=== PATIENT | female | born 1955 | race American Indian/Alaskan Native ===

== ENCOUNTER 2017-12-13 09:37 | Emergency (ER) | payer BC ==
[2017-12-13 09:38] VITALS: BMI 20.7
[2017-12-13 09:45] VITALS: TEMP 98
[2017-12-13] MEDS ORDERED: Sodium Chloride 0.9% 1,000 ML IV STA (10:09)
[2017-12-13] MEDS ORDERED: Magnesium Sulfate 1 gm in D5W 1 GM/100 ML BAG IVPB ONE (10:09)
--- NOTE | 2017-12-13 10:21 | ED PDOC ---
Arrival/HPI - General Chief Complaint: Headache Time Seen by Provider: 12/13/17 09:59 Historian: Patient, Family (son at bedside) - History of Present Illness Narrative History of Present Illness (Text): 12/13/17 10:15 pt p/w + 5 days onset of frontal headache, severe, right >> left, with light sensitivity, sound sensitivity; pt states headache recently is rated 10/10; pt states it started as the day went along last ; pt denied fall/trauma, pt states she has been feeling very nauseous from the headache and vomited intermittently daily; pt states OTC motrin/aleve dulls the pain but the pain quickly resumes; pt states no fever/chills/sweats, no cp/sob/palpitations, no abd pain, no numbness/tingling, no focal weakness, no slurr speech/vision changes/neck pain, no urinary/bowel changes, no incontinence, no other complaints pt is here for further eval. pt denied prior headaches PCP: DR Rice pt is right hand dominate family hx: unremarkable, no family hx of headaches Time/Duration: < week (5 days) Symptom Onset: Sudden Symptom Course: Unchanged Quality: Tightness, Stabbing Severity Level: 10, Severe Activities at Onset: Rest Context: Home Past Medical History - Provider Review Nursing Documentation Reviewed: Yes - Travel History Have you recently traveled outside [place] w/in the past 3 mons?: No - Past History Past History: No Previous - Infectious Disease Hx of Infectious Diseases: None - Reproductive Menopause: Yes Currently : No - Cardiac Hx Cardiac Disorders: No - Pulmonary Hx Respiratory Disorders: No - Neurological Hx Neurological Disorder: No - HEENT Hx HEENT Disorder: No - Renal Hx Renal Disorder: No - Endocrine/Metabolic Hx Endocrine Disorders: No - Hematological/Oncological Hx Blood Disorders: No - Integumentary Hx Dermatological Disorder: No - Musculoskeletal/Rheumatological Hx Musculoskeletal Disorders: No - Gastrointestinal Hx Gastrointestinal Disorders: Yes - Genitourinary/Gynecological Hx Genitourinary Disorders: No - Psychiatric Hx Psychophysiologic Disorder: No Hx Substance Use: No - Surgical History Hx Hysterectomy: Yes (partial) - Anesthesia Hx Anesthesia: Yes Hx Anesthesia Reactions: No Hx Malignant Hyperthermia: No - Suicidal Assessment Feels Threatened In Home Enviroment: No Family/Social History - Physician Review Nursing Documentation Reviewed: Yes Family/Social History: No Known Family HX Smoking Status: Former Smoker Hx Alcohol Use: Yes Frequency of alcohol use: Socially Hx Substance Use: No Hx Substance Use Treatment: No Allergies/Home Meds Allergies/Adverse Reactions: Allergies No Known Allergies Allergy (Verified 12/13/17 09:39) Home Medications: Home Meds Medication Instructions Recorded Confirmed Ranitidine HCl [Zantac] 150 mg PO BID 12/13/17 12/13/17 Review of Systems - Review of Systems Constitutional: Normal Eyes: Normal. absent: Vision Changes, Photophobia ENT: Normal Respiratory: Normal. absent: SOB Cardiovascular: Normal. absent: Chest Pain Gastrointestinal: Nausea, Vomiting. absent: Abdominal Pain Genitourinary Female: Normal Musculoskeletal: Normal Skin: Normal. absent: Rash Neurological: Headache, Dizziness Endocrine: Normal Hemo/Lymphatic: Normal Psychiatric: Normal Physical Exam - Physical Exam Narrative Physical Exam (Text): 12/13/17 10:10 General: alert/awake, GCS = 15, oriented x 3, resting in bed, uncomfortable, cooperative, interactive; mild distress due to pain Head: NC/AT EYE: PERRLA, EOMI, sclera anicteric, no nystagmus, no photophobia but mildly sensitive to light; visual field intact b/l; fundoscopic exam: no acute papilledema noted b/l Facial: WNL Oral: uvula/tongue are midline, no exudate/lesions, no drooling/stridor, no dysphonia; intact dentitions; mild dry oral mucosa NECK: intact ROM, no midline tenderness, no nuchal rigidity, no meningeal signs ; no step off Chest: CTA b/l, no w/r/r; no tachypenia, no accessory muscle use noted Chest Wall: no crepitus, no lesions, no gross deformities, no focal tenderness Cardiac: +S1, +S2, no m/r/r, no tachycardia Abdominal: +BS, soft/nd/nt, well nourished patient; no masses/rebound/guarding/ rigidity; no dash's sign, no mcburney's point tenderness Extremities: intact ROM, strength 5/5 grossly intact in all limbs, neurovasc intact b/l; + ambulatory; reflex +2/2 BACK: no step off, no midline tenderness, NO crepitus, no gross deformities noted; Intact ROM SKIN: cap refill < 1 sec, no ulcerations, no petechiae, no rashes; no gross pallor NEURO: CNII-XII WNL, no facial asymmetries, no slurr speech, oriented x 3 NIH stroke scale ~ 0 Psych: normal insight, normal affect; follows command with ease Vital Signs Reviewed: Yes Vital Signs Temp Pulse Resp BP Pulse Ox 12/13/17 12:56 64 18 118/71 100 12/13/17 11:23 66 18 123/79 99 12/13/17 09:40 98.0 F 68 16 120/81 98 Temperature: Afebrile Blood Pressure: Normal Pulse: Regular Respiratory Rate: Normal Appearance: Positive for: Well-Appearing, Non-Toxic, Uncomfortable. No: Ill- Appearing, Unkept Pain Distress: Mild Mental Status: Positive for: Alert and Oriented X 3 Finger Stick Blood Glucose: 99 - Systems Exam Head: Present: Atraumatic, Normocephalic Medical Decision Making ED Course and Treatment: 12/13/17 10:15 Impression: right sided diffuse headache i have consider all the differential diagnosis regarding pt's chief medical complaints/clinical findings, including but are not limited to: headache, atrumatic A/P: right sided diffuse headache - labs - ct - ua - supportive care - observe/reevaluation 12/13/17 11:25 pt currently still has 10/10 headache pt is awaiting for her results and symptoms improvement 12/13/17 13:00 pt is feeling improved pt states her headache is easing, 6-7/10 pt is more comfortable pt is made aware of her medical results pt is encouraged fluids pt is encouraged smoking cessation pt will f/u as directed pt will be discharged home Re-evaluation Time: 11:25 Reassessment Condition: Unchanged - Lab Interpretations Lab Results: 12/13/17 10:10 12/13/17 11:46 Lab Results 12/13/17 11:46: Sodium 142, Potassium , Chloride 106, Carbon Dioxide 21, Anion Gap 21 H, BUN 16, Creatinine 0.7, Est GFR ( Amer) > 60, Est GFR (Non-Af Amer) > 60, Random Glucose 112 H, Calcium 9.7, Total Bilirubin 1.5 H, AST 73 H, ALT < 6 L, Alkaline Phosphatase 92, Total Protein 9.5 H, Albumin 4.9 H, Globulin 4.6, Albumin/Globulin Ratio 1.1, Lipase 199 12/13/17 10:20: Urine Color Yellow, Urine Appearance Clear, Urine pH 6.0, Ur Specific [place] 1.025, Urine Protein 30 H, Urine Glucose (UA) Negative, Urine Ketones Negative, Urine Blood Negative, Urine Nitrate Negative, Urine Bilirubin Negative, Urine Urobilinogen 0.2, Ur Leukocyte Esterase Small H, Urine RBC 0 - 2 , Urine WBC 5 - 10, Ur Epithelial Cells 6 - 8, Amorphous Sediment Few, Urine Bacteria Many, Fine Granular Casts 0 - 2, Urine Other Uyeast 12/13/17 10:10: WBC 7.1, RBC 4.36, Hgb 13.2, Hct 40.2, MCV 92.2, MCH 30.3, MCHC 32.8, RDW 13.7, Plt Count 382, MPV 9.1, Gran % 55.8, Lymph % (Auto) 33.6, Wilcox % (Auto) 8.8 H, Eos % (Auto) 1.4 L, Baso % (Auto) 0.4, Gran # 3.93, Lymph # ( Auto) 2.4, Wilcox # (Auto) 0.6, Eos # (Auto) 0.1, Baso # (Auto) 0.03, ESR 40 H I have reviewed the lab results: Yes Interpretation: Abnormal lab values (+ ABNL UA) - RAD Interpretation Narrative RAD Interpretations (Text): 12/13/17 11:20 CT Head: Creator : Rashard Hernandez MD FINDINGS: HEMORRHAGE: No intracranial hemorrhage. BRAIN: No mass effect or edema. No atrophy or chronic microvascular ischemic changes. VENTRICLES: Unremarkable. No hydrocephalus. CALVARIUM: Unremarkable. PARANASAL SINUSES: Unremarkable as visualized. No significant inflammatory changes. MASTOID AIR CELLS: Unremarkable as visualized. No inflammatory changes. OTHER FINDINGS: None. IMPRESSION: No acute findings Radiology Orders: 12/13/17 10:08 HEAD W/O CONTRAST [CT] Stat Experience Specialist: Radiologist - Medication Orders Current Medication Orders: Discontinued Medications Magnesium Sulfate/Dextrose (Magnesium Sulfate 1 Gm/100 Ml D5w) 1 gm in 100 mls @ 100 mls/hr IVPB ONCE ONE Stop: 12/13/17 11:08 Last Admin: 12/13/17 10:30 Dose: 100 mls/hr eMAR Start Stop Document 12/13/17 10:30 SF (Rec: 12/13/17 10:30 [email or web address] Intravenous Solution Start Date 12/13/17 Start Time 10:30 End Date 12/13/17 End time 11:30 Total Infusion Time 60 Sodium Chloride (Sodium Chloride 0.9%) 1,000 mls @ 999 mls/hr IV .Q1H1M STA Stop: 12/13/17 11:09 Last Admin: 12/13/17 10:09 Dose: 999 mls/hr eMAR Start Stop Document 12/13/17 10:09 SF (Rec: 12/13/17 10:31 SF [email or web address]) Intravenous Solution Start Date 12/13/17 Start Time 10:09 End Date 12/13/17 End time 11:10 Total Infusion Time 61 Ketorolac Tromethamine (Toradol) 30 mg IVP STAT STA Stop: 12/13/17 10:10 Last Admin: 12/13/17 10:30 Dose: 30 mg MAR Pain Assessment Document 12/13/17 10:30 SF (Rec: 12/13/17 10:31 SF [email or web address] Pain Reassessment Is this a pain reassessment? Yes Sleep Is patient sleeping during reassessment? No Presence of Pain Presence of Pain Yes IVP Administration Document 12/13/17 10:30 SF (Rec: 12/13/17 10:31 [email or web address] Charges for Administration # of IVP Administrations 1 Metoclopramide HCl (Reglan) 10 mg IVP STAT STA Stop: 12/13/17 10:10 Last Admin: 12/13/17 10:30 Dose: 10 mg IVP Administration Document 12/13/17 10:30 SF (Rec: 12/13/17 10:30 SF [email or web address] Charges for Administration # of IVP Administrations 1 Sumatriptan Succinate (Imitrex Inj) 6 mg SC STAT STA Stop: 12/13/17 11:34 Last Admin: 12/13/17 11:57 Dose: 6 mg Subcutaneous Administrations Document 12/13/17 11:57 SF (Rec: 12/13/17 11:57 SF [email or web address] Injection Site MAR Injection Site Left Deltoid Charges for Administration # of Subcutaneous Administrations 1 Disposition/Present on Arrival - Present on Arrival Any Indicators Present on Arrival: No History of DVT/PE: No History of Uncontrolled Diabetes: No Urinary Catheter: No History of Decub. Ulcer: No History Surgical Site Infection Following: None - Disposition Have Diagnosis and Disposition been Completed?: Yes Diagnosis: Headache, Dehydration, UTI (urinary tract infection) Disposition: HOME/ ROUTINE Disposition Time: 13:15 Patient Plan: Discharge Condition: STABLE Discharge Instructions (ExitCare): Headache, Adult, Dehydration, Adult (DC), Urinary Tract Infections in Adults Print Language: CYMRO Additional Instructions: Make sure to see your doctor in 1-2 days DRINK PLENTY OF FLUIDS take your medications as prescribed RETURN TO ED IF worse pain, cant breath, persistent vomiting, high fever >101- 102 for hours, altered behavior, slurr speech, facial changes, focal weakness ( arm/leg or both), unable to urinate, heavy/persistent bleeding, passing out, chest pain, or other medical emergencies Prescriptions: Ibuprofen [Motrin] 600 mg PO TID PRN #30 tab PRN Reason: Pain, Mild (1-3) Metoclopramide [Reglan] 10 mg PO TID PRN #30 tab PRN Reason: Nausea/Vomiting Nitrofurantoin Macrocrystals [Macrobid] 100 mg PO BID #14 cap Referrals: Lion Rice MD [Primary Care Provider] - Follow up with primary Edgar Garcia MD [Staff Provider] - Follow up with primary Forms: Equivalent DATA (Georgian), WORK NOTE
[2017-12-13 10:24] LABS: BASO # 0.03 K/mm3 (0.0-2.0); BASO % 0.4 % (0.0-3.0); EOS # 0.1 (0.0-0.7); EOS % 1.4 % (1.5-5.0); GRAN # 3.93 (1.4-6.5); GRAN % 55.8 % (50.0-68.0); HEMOGLOBIN 13.2 g/dL (12.0-16.0); LYMPH # 2.4 (1.2-3.4); LYMPH % 33.6 % (22.0-35.0); MEAN CELL VOLUME 92.2 fl (80.0-105.0); MEAN CORPUSCULAR HEMOGLOBIN 30.3 pg (25.0-35.0); MEAN CORPUSCULAR HGB CONC 32.8 g/dl (31.0-37.0); MEAN PLATELET VOLUME 9.1 fl (7.0-11.0); MONO # 0.6 (0.1-0.6); MONO % 8.8 % (1.0-6.0); RBC 4.36 10^6/uL (3.5-6.1); RED CELL DISTRIBUTION WIDTH 13.7 % (11.5-14.5); WHITE BLOOD COUNT 7.1 10^3/ul (4.5-11.0)
[2017-12-13 10:29] LABS: URINE APPEARANCE CLEAR (CLEAR); URINE BILIRUBIN NEGATIVE (NEGATIVE); URINE BLOOD NEGATIVE (NEGATIVE); URINE COLOR YELLOW (YELLOW); URINE GLUCOSE (UA) NEGATIVE (NEGATIVE); URINE LEUKOCYTE ESTERASE SMALL Leu/uL (NEGATIVE); URINE PROTEIN 30 mg/dL (<30 mg/dL); URINE UROBILINOGEN 0.2 E.U./dL (<1 E.U./dL)
[2017-12-13 11:04] LABS: URINE BACTERIA MANY (NEG); URINE RBC 0 - 2 /hpf (0-2)
[2017-12-13 11:05] LABS: URINE FINE GRANULAR CAST 0 - 2 /hpf (0-2)
[2017-12-13 11:06] LABS: URINE AMORPHOUS SEDIMENT FEW
--- NOTE | 2017-12-13 11:18 | CT ---
PROCEDURE: CT HEAD WITHOUT CONTRAST. HISTORY: right sided headache COMPARISON: None available. TECHNIQUE: Axial computed tomography images were obtained through the head/brain without intravenous contrast. Radiation dose: Total exam DLP = 900 mGy-cm. This CT exam was performed using one or more of the following dose reduction techniques: Automated exposure control, adjustment of the mA and/or kV according to patient size, and/or use of iterative reconstruction technique. FINDINGS: HEMORRHAGE: No intracranial hemorrhage. BRAIN: No mass effect or edema. No atrophy or chronic microvascular ischemic changes. VENTRICLES: Unremarkable. No hydrocephalus. CALVARIUM: Unremarkable. PARANASAL SINUSES: Unremarkable as visualized. No significant inflammatory changes. MASTOID AIR CELLS: Unremarkable as visualized. No inflammatory changes. OTHER FINDINGS: None. IMPRESSION: No acute findings
[2017-12-13 11:23] VITALS: RESP 18
[2017-12-13 12:42] LABS: ALB/GLOB RATIO 1.1 (1.1-1.8); ALBUMIN 4.9 g/dL (3.0-4.8); ALT/SGPT < 6 U/L (7-56); AST/SGOT 73 U/L (14-36); BLOOD UREA NITROGEN 16 mg/dL (7-21); CALCIUM 9.7 mg/dL (8.4-10.5); GFR AFRICAN-AMERICAN > 60; GFR NON-AFRICAN AMERICAN > 60; LIPASE 199 U/L (23-300)
[2017-12-13 13:35] VITALS: BP 116/69; PULSE 65; O2SAT 99
== END 2017-12-13 13:36 | disposition home or self-care (01) ==
LOC: ED 09:37
DX: E86.0 Dehydration (principal); R51 Headache; N39.0 Urinary tract infection, site not specified
CPT/HCPCS: 70450; 80053; 81001; 83690; 85025; 85651; 86140; 87086; 96365; 96372; 96375; 99285; J1885; J2765; J3030; J3475; J7030